=== PATIENT | male | born 1960 | race Caucasian/White ===

== ENCOUNTER 2017-03-15 08:24 | Inpatient (IN) ==
[2017-03-11 12:37] LABS: Appearance,Urine CLEAR; Bilirubin,Urine NEG (NEG); Color,Urine STRAW; Glucose,Urine (UA) NEGATIVE (NEG); Leukocyte Esterase,Urine NEG /uL (NEG); Nitrate,Urine NEG (NEG); Protein,Urine NEG (NEG); Urine Blood NEG mg/dL (<0.03); Urobilinogen,Urine NEG (NEG)
[2017-03-11 13:57] LABS: Basophils # (Auto) 0 K/mcL (0.0-0.3); Basophils % (Auto) 0.2 % (0.0-2.0); Eosinophils # (Auto) 0.2 K/mcL (0.0-0.7); Granulocytes % (Auto) 78.1 % (38.0-78.0); Lymphocytes # (Auto) 0.9 K/mcL (1.5-4.8); Lymphocytes % (Auto) 10.8 % (15.5-49.0); Mean Cell Volume 94.5 fL (80.0-100.0); Mean Corpuscular HGB Conc 33.9 g/dL (31.0-36.0); Mean Corpuscular Hemoglobin 32.1 pg (26.0-34.0); Monocytes # (Auto) 0.6 K/mcL (0.1-0.9); Monocytes % (Auto) 7.9 % (1.0-12.0); Platelet Count 281 K/mcL (140-440); RBC 4.55 M/mcL (4.50-5.90); Red Cell Distribution Width 14.3 % (11.5-14.5)
[2017-03-11 14:26] LABS: Blood Urea Nitrogen 12 mg/dl (6-20)
[2017-03-15] MEDS ORDERED: ACETAMINOPHEN 500 MG TABLET PO SCH (09:30)
[2017-03-15] MEDS ORDERED: oxyCODONE 10 MG TAB.ER.12H PO SCH (09:30)
[2017-03-15] MEDS ORDERED: PREGABALIN 75 MG CAPSULE PO SCH (09:30)
[2017-03-15] MEDS ORDERED: CELECOXIB 200 MG CAPSULE PO SCH (09:30)
[2017-03-15] MEDS ORDERED: ceFAZolin 1 GM VIAL IV SCH (09:30)
[2017-03-15] MEDS ORDERED: GENTAMICIN SULFATE 800 MG/20 ML VIAL IR ONE (11:06)
[2017-03-15] MEDS ORDERED: GLYCOPYRROLATE 0.2 MG/ML VIAL IV ONE (11:25)
[2017-03-15] MEDS ORDERED: ONDANSETRON 4 MG/2 ML VIAL IV ONE (11:25)
[2017-03-15] MEDS ORDERED: KETAMINE 100 MG/ML ML IV ONE (11:25)
[2017-03-15] MEDS ORDERED: ePHEDrine 50 MG/ML AMPUL IV ONE (11:25)
[2017-03-15] MEDS ORDERED: fentaNYL 250 MCG/5 ML VIAL IV ONE (11:25)
[2017-03-15] MEDS ORDERED: DEXAMETHASONE 10 MG/ML VIAL IV ONE (11:25)
[2017-03-15] MEDS ORDERED: MIDAZOLAM 2 MG/2 ML VIAL IV ONE (11:25)
[2017-03-15] MEDS ORDERED: LIDOCAINE HCL/PF 100 MG/5 ML SYRINGE IV ONE (11:25)
[2017-03-15] MEDS ORDERED: PROPOFOL 200 MG/20 ML VIAL IV ONE (11:25)
[2017-03-15] MEDS ORDERED: SUCCINYLCHOLINE 20 MG/ML ML IV ONE (11:25)
[2017-03-15] MEDS ORDERED: TRANEXAMIC ACID 1,000 MG/10 ML VIAL IV ONE (11:25)
[2017-03-15] MEDS ORDERED: FLUMAZENIL 0.1 MG/ML ML IV PRN (12:51)
[2017-03-15] MEDS ORDERED: ATROPINE SULFATE 0.4 MG/ML VIAL IV PRN (12:51)
[2017-03-15] MEDS ORDERED: HYDROmorphone 2 MG/ML SYRINGE IV PRN ×2 (12:51→13:13)
[2017-03-15] MEDS ORDERED: NALOXONE HCL 0.4 MG/ML VIAL IV PRN (12:51)
[2017-03-15] MEDS ORDERED: ONDANSETRON 4 MG/2 ML VIAL IV PRN ×2 (12:51→13:13)
[2017-03-15] MEDS ORDERED: METOPROLOL TARTRATE 5 MG/5 ML VIAL IV PRN (12:51)
[2017-03-15] MEDS ORDERED: ePHEDrine 50 MG/ML AMPUL IV PRN (12:51)
[2017-03-15] MEDS ORDERED: IPRATROPIUM/ALBUTEROL 3 ML AMPUL.NEB NEB PRN (12:51)
[2017-03-15] MEDS ORDERED: ACETAMINOPHEN 1,000 MG/100 ML BOTTLE IV ONE (12:51)
[2017-03-15] MEDS ORDERED: METHOCARBAMOL 1,000 MG/10 ML VIAL IV PRN (12:51)
[2017-03-15] MEDS ORDERED: fentaNYL 100 MCG/2 ML VIAL IV PRN (12:51)
[2017-03-15] MEDS ORDERED: KETOROLAC 30 MG/ML VIAL IV PRN (12:51)
[2017-03-15] MEDS ORDERED: BENZOCAINE/MENTHOL 1 LOZENGE PO PRN ×2 (12:51→13:13)
[2017-03-15] MEDS ORDERED: MEPERIDINE 25 MG/ML SYRINGE IV PRN (12:51)
[2017-03-15] MEDS ORDERED: diphenhydrAMINE 50 MG/ML VIAL IV PRN (12:51)
[2017-03-15] MEDS ORDERED: LACTATED RINGERS 1,000 ML IV SCH (13:00)
--- NOTE | 2017-03-15 13:10 | Brief Operative Note ---
Date of procedure: 03/15/17 Pre-op diagnosis: Left Hip djd Post-op diagnosis: same Procedure: Left total hip Grafts/Implants: No Anesthesia: GETA Complications Description: 03/15/17 13:10 none Surgeon: Ravi Whitman [employer] Inspector: Vinh Perkins Estimated blood loss (cc): 140 Specimens Removed/Pathology: none sent Condition: stable Disposition: PACU
[2017-03-15] MEDS ORDERED: POLYETHYLENE GLYCOL 3350 17 GM PACKET PO PRN (13:13)
[2017-03-15] MEDS ORDERED: BISACODYL 10 MG SUPP.RECT PR PRN (13:13)
[2017-03-15] MEDS ORDERED: ACETAMINOPHEN 325 MG TABLET PO PRN (13:13)
[2017-03-15] MEDS ORDERED: KETOROLAC 15 MG/ML VIAL IV PRN (13:13)
[2017-03-15] MEDS ORDERED: FLEETS ADULT ENEMA PR PRN (13:13)
[2017-03-15] MEDS ORDERED: TRANEXAMIC ACID 1,000 MG/10 ML VIAL IV SCH (13:13)
[2017-03-15] MEDS ORDERED: MAGNESIUM HYDROXIDE 30 ML ORAL.SUSP PO PRN (13:13)
--- NOTE | 2017-03-15 13:46 | Operative Note ---
DATE OF OPERATION: 03/15/2017 PREOPERATIVE DIAGNOSIS: Left hip degenerative arthritis. POSTOPERATIVE DIAGNOSIS: Left hip degenerative arthritis. PROCEDURE: Left total hip arthroplasty. SURGEON: Ravi Whitman MD. REFINING ENGINEER: Vinh Perkins PA-C. ANESTHESIA: General LMA anesthesia. ESTIMATED BLOOD LOSS: About 120 mL. DESCRIPTION OF PROCEDURE: The patient was brought to the operating room and put to sleep with general LMA anesthesia. Once asleep, the patient had the left hip sterilely prepped and draped in the usual sterile fashion. A superior posterior approach was performed after a time out and tranexamic acid and antibiotics had been given. We dissected through the fatty tissue down through the muscle layers and placed a Charnley retractor, incision through the capsule and dislocated the hip. We made the neck cut at 34 mm and then subluxed the hip anteriorly, removed the labrum, reamed up to the size 57 and implanted a 58 cup from [employer]. This was at 15 degrees of anteversion with 45 degrees of inclination. We then placed a dual mobility liner, removed spurs anteriorly and then broached up on the femur to a size 6 stem. This was trialed and x-ray confirmed position and leg length. We then placed a cementless stem size 6 with a +4 neck length with a dual mobility ball. Patient tolerated this well. This was reduced, very stable. Capsule repaired with #1 Ethibond. Fascial layer was closed with Stratafix #1. Fatty layer closed with #1 Vicryl. Skin was closed with 2-0 Vicryl and adhesive closure. The patient tolerated this well without complication. RBH:aniya Job ID: [id number] Doc ID: [id number] Ravi Whitman MD
--- NOTE | 2017-03-15 14:08 | XRay Report ---
CLINICAL INFORMATION: Postsurgical follow-up TECHNIQUE: AP pelvis and bilateral hips. AP and crosstable lateral left hip COMPARISON: None. FINDINGS: Status post left total hip arthroplasty. Left acetabulum, head complements are in anatomic positions. Postsurgical soft tissue gas is identified. IMPRESSION: Status post left total hip arthroplasty Interpreted and Authenticated by: Phil Terry 03/15/17
[2017-03-15] MEDS: 0.45 % SODIUM CHLORIDE 1,000 ML IV SCH (14:33)
[2017-03-15] MEDS: 0.9 % SODIUM CHLORIDE 10 ML SYRINGE IV SCH ×2 (14:34→20:52)
[2017-03-15] MEDS: ceFAZolin 1 GM VIAL IV SCH (19:35)
[2017-03-15] MEDS: SENNOSIDES 1 TABLET PO SCH (20:51)
[2017-03-15] MEDS: ASPIRIN 325 MG ENTERIC COATED TABLET PO SCH (20:51)
[2017-03-15] MEDS: DOCUSATE SODIUM 100 MG CAPSULE PO SCH (20:51)
[2017-03-15] MEDS ORDERED: TEMAZEPAM 15 MG CAPSULE PO PRN (21:00)
[2017-03-15] MEDS: HYDROcodone/APAP 10/325MG TABLET PO PRN (23:09)
[2017-03-16] MEDS: HYDROcodone/APAP 10/325MG TABLET PO PRN ×6 (03:12→23:21)
[2017-03-16] MEDS: ceFAZolin 1 GM VIAL IV SCH (03:18)
[2017-03-16] MEDS: 0.45 % SODIUM CHLORIDE 1,000 ML IV SCH ×3 (04:47→23:21)
[2017-03-16] MEDS: BISOPROLOL 5 MG TABLET PO SCH ×2 (06:51→09:58)
[2017-03-16] MEDS: HYDROCHLOROTHIAZIDE 25 MG TABLET PO SCH ×2 (06:51→09:58)
[2017-03-16] MEDS: LOSARTAN 50 MG TABLET PO SCH ×2 (06:51→09:57)
[2017-03-16] MEDS: DOCUSATE SODIUM 100 MG CAPSULE PO SCH ×3 (06:52→21:49)
[2017-03-16] MEDS: ASPIRIN 325 MG ENTERIC COATED TABLET PO SCH ×3 (06:52→21:49)
[2017-03-16] MEDS: FUROSEMIDE 40 MG TABLET PO SCH ×2 (06:53→09:57)
[2017-03-16] MEDS: 0.9 % SODIUM CHLORIDE 10 ML SYRINGE IV SCH ×3 (06:54→23:15)
--- NOTE | 2017-03-16 07:24 | Orthopedic Progress Note ---
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 Chief Complaint: [Pt is stable this morning on post operative day 1 without any significant concerns or complaints. Patients vital signs have remained stable. Patients dressing is dry and exhibits a grossly intact neurovascular and neuromotor exam. Patients 10 point ROS is otherwise negative. ] Objective Vital signs: Vital Signs Temp Pulse Resp BP Pulse Ox 03/16/17 07:14 98.4 F 20 117/72 94 03/16/17 04:00 98.5 F 75 12 120/68 93 03/15/17 23:24 98.1 F 76 12 120/69 92 03/15/17 20:00 98.2 F 75 12 147/66 95 03/15/17 19:39 96 03/15/17 19:36 95 03/15/17 16:05 97.6 F 62 18 145/80 96 03/15/17 15:35 60 16 126/59 97 03/15/17 15:05 58 L 16 167/76 97 03/15/17 14:50 50 L 18 128/52 98 03/15/17 14:35 57 L 16 126/64 93 03/15/17 14:20 96.1 F L 58 L 18 128/63 95 03/15/17 14:10 98.0 F 54 L 15 113/60 94 03/15/17 14:00 98.0 F 56 L 15 125/67 95 03/15/17 13:56 61 13 113/57 97 03/15/17 13:51 55 L 12 124/59 98 03/15/17 13:46 59 L 9 L 115/56 100 03/15/17 13:41 61 13 111/61 98 03/15/17 13:36 65 11 L 140/79 97 03/15/17 13:31 97.4 F 69 16 141/78 94 03/15/17 08:24 97.4 F 74 18 120/75 93 Intake and Output 03/15/17 03/16/17 03/16/17 21:59 05:59 13:59 Intake Total 1200 / 1200 2150 / 2150 Output Total 480 / 480 625 / 625 Balance 720 / 720 1525 / 1525 Intake: IV 400 / 400 1000 / 1000 Sodium Chloride 0.45% 1, 1000 / 1000 000 ml @ 100 mls/hr IV . Q10H MAUREEN Rx#:[id number] Oral 800 / 800 1150 / 1150 Output: Void Amount 480 / 480 625 / 625 Other: Meal Dinner Percent of Meal Consumed 100% Feeding Ability Independent Weight 366 lb 14.4 oz Intake & Output: Intake & Output 03/15/17 03/16/17 03/16/17 21:59 05:59 13:59 Intake Total 1200 / 1200 2150 / 2150 Output Total 480 / 480 625 / 625 Balance 720 / 720 1525 / 1525 Weight 366 lb 14.4 oz Intake: IV 400 / 400 1000 / 1000 Sodium Chloride 0.45% 1, 1000 / 1000 000 ml @ 100 mls/hr IV . Q10H MAUREEN Rx#:[id number] Oral 800 / 800 1150 / 1150 Output: Void Amount 480 / 480 625 / 625 Other: Meal Dinner Percent of Meal Consumed 100% Feeding Ability Independent Incision: Yes healing Incision clean and dry: Yes Dressing: Yes clean, Yes dry Weight bearing status: full Neurological exam IM: Yes motor sensory intact, Yes neurovascular intact Extremities exam IM: Yes Foot pink and warm, Yes neurovascular intact - Labs CBC & BMP: 03/16/17 05:51 03/11/17 10:59 Labs: Orthopedic Labs 03/11/17 10:59 PT 12.7 INR 0.9 APTT 25 03/16/17 03/11/17 05:51 10:59 Hgb 14.6 Hct 37.3 L 43.0 Assessment and Plan (1) Hx of total hip arthroplasty Patient has been educated regarding wound care and dressings, follow up recommendations, and medication use. We will f/u with the patient within 2-3 weeks for wound check. Status: Acute
--- NOTE | 2017-03-16 07:26 | Discharge Summary ---
Ortho Discharge - [facility] - Patient Instructions Diet: Regular Diet Activity: activity as tolerated, weight bearing as tolerated Total Hip Protocol: Follow activity instructions as provided by Physical Therapy. Dressing Care: May shower in 2 days Patient Education: Total Hip Replacement (DC) Additional Instructions: Discharge Instructions: Do the exercises at home that physical therapy gave you. [facility] [phone] Take your prescription, photo ID, insurance cards, and current medication list with you to your first physical therapy appointment. Take your prescription to brick picker any medication or equipment (such as walker, crutches, toilet riser or C.P.M.) Wear comfortable clothing for your physical therapy. Weight bearing as tolerated. If you have the Aquacel Ag dressing, leave in place for 7 days then remove. If dressing becomes soiled (turns black), remove and use gauze 4x4 dressing and silvasorb ointment and change daily. Keep incision clean and dry. If you have Dermabond (a dressing with a mesh-like appearance), leave open to air. You may start showering on post op day #2. The Dermabond dressing can get wet, do not scrub dressing. Pat dry. To avoid constipation while taking any narcotic pain medication, take an over the counter stool softener/laxative. Use your Cryocuff or ice packs as directed, on for 20 minutes at a time throughout the day. This and elevation will help with pain and swelling. Call your physician for fevers above 100.5 or pain not controlled by medication. Your prescriptions are with your discharge information. Some medications were electronically transmitted to your pharmacy of choice. - Problem Maintenance (1) Hx of total hip arthroplasty Status: Acute - Follow Up Plan Follow Up Appointments: Ravi Whitman MD [Physician] - 03/30/17 8:40 am Disposition: Home, Self-Care Prognosis: Good Rehab Potential: Good I certify that the patient requires SNF services: No Overall status at discharge: patient is progressing back to baseline - Orders For Discharge Prescriptions: Aspirin [Ecotrin] 325 mg PO BID #60 Docusate Sodium [Colace] 100 mg PO BID #60 capsule HYDROcodone/APAP 10/325MG [Hamer 10/325Mg] 1 - 2 tab PO Q4HP PRN #75 tablet PRN Reason: Pain
[2017-03-16] MEDS ORDERED: BISOPROLOL/HCTZ 2.5 1 TAB TABLET PO SCH (09:00)
[2017-03-16] MEDS ORDERED: PNEUMOCOCCAL 23-VAL P-SAC VAC 0.5 ML VIAL IM ONE (09:00)
[2017-03-16] MEDS: SENNOSIDES 1 TABLET PO SCH (21:49)
[2017-03-17] MEDS: HYDROcodone/APAP 10/325MG TABLET PO PRN ×2 (03:00→08:34)
--- NOTE | 2017-03-17 07:12 | Orthopedic Progress Note ---
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 Chief Complaint: [minimal pain and walking well] Objective Vital signs: Vital Signs Temp Pulse Pulse Resp BP Pulse Ox 03/17/17 07:07 97.3 F 20 138/79 93 03/17/17 03:30 97.7 F 59 L 16 129/74 94 03/16/17 23:14 98.7 F 61 16 143/63 91 03/16/17 19:38 98.7 F 60 16 103/60 92 03/16/17 15:55 98.3 F 18 146/72 95 03/16/17 11:30 98.1 F 20 125/61 96 03/16/17 07:45 70 96 03/16/17 07:14 98.4 F 20 117/72 94 Intake and Output 03/16/17 03/17/17 03/17/17 21:59 05:59 13:59 Intake Total 1520 / 1520 1150 / 1150 Output Total 600 / 600 Balance 920 / 920 1150 / 1150 Intake: Oral 1520 / 1520 1150 / 1150 Output: Void Amount 600 / 600 Other: Meal Dinner Percent of Meal Consumed 100% # Voids 1 1 Weight 367 lb 14.4 oz Intake & Output: Intake & Output 03/16/17 03/17/17 03/17/17 21:59 05:59 13:59 Intake Total 1520 / 1520 1150 / 1150 Output Total 600 / 600 Balance 920 / 920 1150 / 1150 Weight 367 lb 14.4 oz Intake: Oral 1520 / 1520 1150 / 1150 Output: Void Amount 600 / 600 Other: Meal Dinner Percent of Meal Consumed 100% # Voids 1 1 Incision: Yes healing Incision clean and dry: Yes Dressing: Yes clean Weight bearing status: full Neurological exam IM: Yes oriented X3, Yes neurovascular intact Extremities exam IM: Yes Foot pink and warm (dc home), Yes neurovascular intact - Labs CBC & BMP: 03/16/17 05:51 03/11/17 10:59 Labs: Orthopedic Labs 03/11/17 10:59 PT 12.7 INR 0.9 APTT 25 09/12/17 09/07/17 05:51 10:59 Hgb 14.6 Hct 37.3 L 43.0
[2017-03-17] MEDS: FUROSEMIDE 40 MG TABLET PO SCH (08:33)
[2017-03-17] MEDS: 0.45 % SODIUM CHLORIDE 1,000 ML IV SCH (08:33)
[2017-03-17] MEDS: BISOPROLOL 5 MG TABLET PO SCH (08:33)
[2017-03-17] MEDS: HYDROCHLOROTHIAZIDE 25 MG TABLET PO SCH (08:34)
[2017-03-17] MEDS: LOSARTAN 50 MG TABLET PO SCH (08:34)
[2017-03-17] MEDS: 0.9 % SODIUM CHLORIDE 10 ML SYRINGE IV SCH (08:36)
[2017-03-17] MEDS: ASPIRIN 325 MG ENTERIC COATED TABLET PO SCH (08:36)
[2017-03-17] MEDS: DOCUSATE SODIUM 100 MG CAPSULE PO SCH (08:37)
[2017-03-17] MEDS ORDERED: FLU VACC QS2017-18 36MOS UP/PF 60 MCG/0.5 ML SYRINGE IM ONE (09:00)
== END 2017-03-17 09:40 | disposition home or self-care (01) | DRG 470 ==
LOC: MEDSUR 08:24
PROVIDERS: ADMIT Orthopaedic Surgery; ATTEND Orthopaedic Surgery